=== PATIENT | female | born 1960 | race Caucasian/White ===

== ENCOUNTER 2016-08-16 12:58 | Inpatient (IN) | payer MEDICARE, OTHER ==
[2016-08-16 13:36] LABS: #Basophils 0.1 thou/uL (0.0-0.2); #Lymphocytes 1.5 thou/uL (1.20-3.40); #Monocytes 0.5 thou/uL (0.11-0.59); #Neutrophils 3.2 thou/uL (1.40-6.50); %Basophils 1.5 % (0.0-1.0); %Eosinophils 0.1 % (0.0-10.0); %Monocytes 10.1 % (0.0-10.0); Hematocrit 46.5 % (36.0-47.0); Red Blood Cell (RBC) Count 4.92 mill/uL (4.20-5.40); White Blood Cell (WBC) Count 5.3 thou/uL (4.8-10.8)
[2016-08-16 13:50] LABS: ALT (SGPT) 11 U/L (0-55); AST (SGOT) 23 U/L (5-34); Alkaline Phosphatase 92 U/L (40-150); Anion Gap 15 mmol/L (10-20); BUN (Urea Nitrogen) 23 mg/dL (9.8-20.1); Bilirubin, Total 0.3 mg/dL (0.2-1.2); CK (CPK) 26 U/L (29-168); Calc. Creatinine Clearance 0 mL/min (70-130); Calcium 9.1 mg/dL (7.8-10.44); Carbon Dioxide 22 mmol/L (22-29); Chloride 104 mmol/L (98-107); Estimated GFR-MDRD 81; Globulin 3.7 g/dL (2.4-3.5); Protein, Total 7.9 g/dL (6.0-8.3)
[2016-08-16] MEDS ORDERED: methylPREDNISolone Sod Succ/PF 125 MG/2 ML VIAL ONE (14:23)
[2016-08-16] MEDS ORDERED: Acetaminophen 325 MG TAB ONE (15:37)
[2016-08-16] MEDS ORDERED: Sodium Chloride 0.9% 20 ML ONE (16:59)
[2016-08-16] MEDS ORDERED: Ondansetron ODT 4 MG TAB PO PRN (17:05)
[2016-08-16] MEDS ORDERED: Ondansetron HCl/PF 4 MG/2 ML Vial SLOW IVP PRN (17:05)
[2016-08-16] MEDS ORDERED: Acetaminophen 325 MG TAB PO PRN (17:05)
[2016-08-16] MEDS ORDERED: Cyclobenzaprine 10 MG TAB PO PRN (17:39)
[2016-08-16] MEDS ORDERED: Non-Formulary Item 1 EACH (Cyclobenzaprine Hcl [Cyclobenzaprine Hcl] 5 MG) PO PRN (17:39)
[2016-08-16] MEDS ORDERED: (Acetaminophen With Codeine [Tylenol With Codeine #4] 1 TABLET) PO PRN (17:39)
[2016-08-16 17:41] VITALS: BMI 22.1
[2016-08-16] MEDS ORDERED: FLU VACC QS2016-17 36MOS UP/PF 0.5 ML SYRINGE IM ONE (18:00)
[2016-08-16] MEDS: Ipratropium Bromide 2.5 ml Neb NEB SCH (20:32)
[2016-08-16] MEDS: Mometasone/Formoterol 60 PUFF AER INH SCH (20:35)
[2016-08-16] MEDS: Amitriptyline HCl 10 MG TAB PO SCH (21:04)
--- NOTE | 2016-08-16 21:49 | RAD ---
CHEST TWO VIEWS: Date: 08-16-16 Comparison: Prior studies dating back to July 2011. FINDINGS: The heart is normal in size. The lungs are clear. No infiltrate or effusion was seen. A small nod ular density at the top of the left hilum is probably a vessel on end. It could be a calcified gran uloma. In any case, it has not changed at all over the last five years. IMPRESSION: No acute thoracic finding. POS: HOME
[2016-08-16] MEDS: Acetaminophen/Codeine 30-300mg Tablet PO PRN (22:22)
[2016-08-16] MEDS: methylPREDNISolone Sod Succ/PF 125 MG/2 ML VIAL IVP SCH (22:24)
--- NOTE | 2016-08-17 00:38 | HP ---
DATE OF ADMISSION: 08/16/2016 CHIEF COMPLAINT: Dyspnea. HISTORY OF PRESENT ILLNESS: 56-year-old female who presented to [facility] after a 4-day history of shortness of breath, particularly with activity. Of note, the patient is a long time smoker, approximately 1 pack per day for the last 40 years. Up to this point, she has had no formal diagnosis of COPD; and is on no medications for this suspected diagnosis. In the emergency department, patient's labs were evaluated showing no leukocytosis , no anemia, normal electrolytes, and kidney function, normal glucose, and liver enzymes along with normal cardiac labs. A chest x-ray was taken with a preliminary read of COPD changes with no notable infiltrates. The patient is afebrile, but does present with a mild tachycardia and tachypnea. The patient is not on home oxygen, however, is requiring it in order to sat greater than 90% ; the patient was notably in the 80s while satting on room air in the emergency department. The patient will be admitted for hypoxia and further care related to concerns for potential COPD. PAST MEDICAL HISTORY: Includes lumbar degenerative disk disease, chronic headaches, and osteoporosis. PAST SURGICAL HISTORY: Bilateral breast implants in 2007 and cholecystectomy in 2011. SOCIAL HISTORY: Smoker 1 pack per day x40 years. FAMILY HISTORY: Both parents are and she has one daughter, otherwise noncontributory. ALLERGIES: PENICILLIN and LYRICA. CURRENT MEDICATIONS: Include Mobic 15 mg p.o. daily, amitriptyline 10 mg 2 tabs by mouth once a day at bedtime, Flexeril 10 mg q.8 hours p.r.n., sertraline 50 mg p.o. daily, diazepam 5 mg half tablet by mouth once daily at bedtime, alendronate 70 mg 1 tab p.o. weekly, Tylenol #4 one p.o. q.6 hours p.r.n. REVIEW OF SYSTEMS: Constitutional: Denies fever, chills, fatigue, and weakness. Eyes: Denies blurred vision, loss of vision, or pain. Chest: Denies chest pain or palpitations. Pulmonary: Reports dyspnea. Gastrointestinal: Denies nausea, vomiting, diarrhea, constipation, or abdominal pain. Genitourinary: Denies urgency, frequency, dysuria, or hematuria. Skin: Denies rash, sores, or ulcer. Neuro: Denies having headache. LABORATORY DATA: White blood cell count 5.3, H\T\H is 15.3 and 46.5, platelets 156. Sodium is 137, potassium is 3.7, BUN is 23, creatinine is 0.74. GFR is 81 , glucose 102. Normal cardiac enzymes. Chest x-ray official read is pending. PHYSICAL EXAMINATION: VITAL SIGNS: Temperature is 98.4, pulse is 119, respiratory rate is 24, oxygenating 92% on 2 liters, blood pressure is 128/86. GENERAL: Patient is well appearing, alert, and oriented to person, place, time , and situation in no acute distress. FACE: No asymmetry. EYES: Conjunctivae is clear. Extraocular muscles are intact bilaterally. No discharge. She is wearing glasses. HEAD, EYES, EARS, NOSE, and THROAT: Moist mucous membranes within normal limits. NECK: Thyroid. Supple, full range of motion. No lymphadenopathy, no meningeal signs. CARDIOVASCULAR: Sinus tachycardia. Normal S1, S2. No murmurs, rubs, or gallops. RESPIRATORY: Scattered wheezes diffusely with few scattered crackles. No respiratory distress. GASTROINTESTINAL: Soft, nontender to palpation. No rebound or guarding. No masses. EXTREMITIES: Warm and well well-perfused. No clubbing, cyanosis, or edema. SKIN: No rash. NEUROLOGIC: Nonfocal. Cranial nerves II through XII are intact. BACK: Lower paralumbar and sacral tenderness bilaterally. ASSESSMENT AND PLAN: 1. Hypoxia. We will provide supplemental oxygen to keep sats greater than 92% and plan to wean oxygen as tolerated. We will provide scheduled nebulized treatments. We will continue q.8 hours Solu-Medrol with plan to transition to p.o. steroids thereafter. We will follow up chest x-ray for suspected chronic obstructive pulmonary disease findings and start on controller medication Dulera and Spiriva. 2. Smoker. Patient was counseled on smoking cessation, she plans to stop at this time going forward; she currently declines a Nicotine patch. 3. Lumbar degenerative disk disease. We will continue home medication, pain medication. 4. Chronic headaches. We will continue amitriptyline. 5. Anxiety and depression. We will continue sertraline. 6. Prophylaxis. We will start prophylactic Lovenox and PPI. MTDD
[2016-08-17] MEDS: Ipratropium Bromide 2.5 ml Neb NEB SCH ×4 (01:12→18:40)
[2016-08-17] MEDS: Enoxaparin Sodium 30 MG/0.3 ML SYRINGE SC SCH (06:07)
[2016-08-17] MEDS: methylPREDNISolone Sod Succ/PF 125 MG/2 ML VIAL IVP SCH (06:08)
[2016-08-17] MEDS: Mometasone/Formoterol 60 PUFF AER INH SCH ×2 (06:12→18:38)
[2016-08-17] MEDS: Acetaminophen/Codeine 30-300mg Tablet PO PRN ×2 (06:40→12:56)
[2016-08-17] MEDS: Meloxicam 7.5 MG TAB PO SCH (08:12)
[2016-08-17] MEDS: Diazepam 5 MG TAB PO SCH (08:12)
[2016-08-17] MEDS: Nicotine 21 MG PATCH TD SCH (08:19)
[2016-08-17] MEDS: Pantoprazole 40 MG VIAL IVP SCH (08:32)
[2016-08-17] MEDS ORDERED: Cyclobenzaprine 10 MG TAB PO PRN (09:36)
[2016-08-17] MEDS ORDERED: methylPREDNISolone Sod Succ/PF 125 MG/2 ML VIAL IVP SCH (12:10)
[2016-08-17] MEDS: Amitriptyline HCl 10 MG TAB PO SCH (20:58)
[2016-08-18] MEDS: Ipratropium Bromide 2.5 ml Neb NEB SCH ×3 (00:40→12:53)
[2016-08-18] MEDS: Acetaminophen/Codeine 30-300mg Tablet PO PRN ×2 (00:43→10:23)
[2016-08-18] MEDS: Enoxaparin Sodium 30 MG/0.3 ML SYRINGE SC SCH (05:47)
[2016-08-18 06:17] VITALS: BP 140/68
[2016-08-18] MEDS: Mometasone/Formoterol 60 PUFF AER INH SCH (07:59)
[2016-08-18] MEDS: Diazepam 5 MG TAB PO SCH (08:50)
[2016-08-18] MEDS: Pantoprazole 40 MG VIAL IVP SCH (08:52)
[2016-08-18] MEDS: Meloxicam 7.5 MG TAB PO SCH (08:52)
[2016-08-18] MEDS: Nicotine 21 MG PATCH TD SCH (08:52)
[2016-08-18 12:06] VITALS: TEMP 97.8
--- NOTE | 2016-08-19 06:02 | DIS ---
DATE OF ADMISSION: 08/17/2016 DATE OF DISCHARGE: 08/18/2016 ADMISSION DIAGNOSES: Hypoxia, smoker, lumbar degenerative disk disease, chronic headaches, anxiety, and depression. DISCHARGE DIAGNOSES: Hypoxia, smoker, lumbar degenerative disk disease, chronic headaches, anxiety, and depression, chronic obstructive pulmonary disease. PROCEDURES: Chest x-ray showed no acute intrathoracic findings with some hyperexpansion of the lung luna. HOSPITAL COURSE: This is a 56-year-old female, who was admitted for hypoxia after presenting to the emergency department with a 4-day history of progressive dyspnea. She was notably hypoxic on room air, requiring supplemental oxygen. The patient does have an extended history of tobacco abuse. Her lab work and chest x-ray was largely unrevealing from an infectious process. Upon admission, she was provided supplemental oxygen to keep saturations greater than 92%, received scheduled nebulized treatments, IV Solu- Medrol, and was started on COPD maintenance medications including Spiriva and Dulera. Over the course of her short stay, the patient's, respiratory status did improve to where she was able to maintain an oxygen levels into the low 90s on room air after successfully weaning off of supplemental oxygen. She remained afebrile and hemodynamically stable throughout her stay and at this time she is appropriate for discharge home. She was thoroughly counseled on smoking cessation and provided with nicotine patches here and upon discharge. DISPOSITION: The patient will return to her home and follow up with myself in clinic next week. DISCHARGE MEDICATIONS: Include her usual home medications which are Mobic 15 mg p.o. daily, amitriptyline 10 mg two tablets p.o. at bedtime, Flexeril 10 mg every 8 hours p.r.n., sertraline 50 mg p.o. daily, diazepam 5 mg half tablet by mouth once daily at bedtime, alendronate 70 mg p.o. weekly, Tylenol #4 every 6 hours p.r.n. NEW MEDICATIONS: Include prednisone 40 mg p.o. daily x5 days, Spiriva 2 puffs daily, and Breo Ellipta one inhalation daily. MTDD
[2016-08-23] MEDS ORDERED: Alendronate Sodium 70 mg Tablet PO SCH (06:00)
== END 2016-08-18 14:10 | disposition home or self-care (01) | DRG 192 ==
LOC: BURERS 12:58 → INTOOBSV 16:34 → BURMED 16:34 → OBSVTOIN 08-17 12:20
PROVIDERS: ADMIT Family Medicine; ATTEND Family Medicine
DX: J44.1 Chronic obstructive pulmonary disease with (acute) exacerbation (principal); F32.9 Major depressive disorder, single episode, unspecified; R09.02 Hypoxemia; J45.909 Unspecified asthma, uncomplicated; F17.210 Nicotine dependence, cigarettes, uncomplicated; M51.36 Other intervertebral disc degeneration, lumbar region; R51 Headache; F41.9 Anxiety disorder, unspecified; M81.0 Age-related osteoporosis without current pathological fracture
CPT/HCPCS: 36415; 71020; 80053; 82553; 83880; 84484; 85025; 93005; 94640; 94664; 94760; 96374; A4216; C9113; J1650; J2930; J7620; J7644

== ENCOUNTER 2016-11-22 13:49 | Emergency (ER) | payer MEDICARE, OTHER ==
[2016-11-22] MEDS ORDERED: predniSONE 20 MG TAB ONE (14:18)
[2016-11-22 14:23] LABS: #Basophils 0.1 thou/uL (0.0-0.2); #Eosinphils 0.2 thou/uL (0.0-0.7); #Lymphocytes 2.6 thou/uL (1.20-3.40); #Monocytes 0.4 thou/uL (0.11-0.59); #Neutrophils 2.2 thou/uL (1.40-6.50); %Basophils 2.1 % (0.0-1.0); %Eosinophils 3.4 % (0.0-10.0); %Lymphocytes 47.7 % (21.0-51.0); %Monocytes 6.7 % (0.0-10.0); %Neutrophils 40.1 % (42.0-75.0); Mean Corpuscular HGB CONC 34.1 g/dL (32.0-36.0); Mean Corpuscular Hemoglobin 32.2 pg (27.0-31.0); Mean Corpuscular Volume 94.3 fl (81.0-99.0); Mean Platelet Volume 7.4 fL (7.4-10.4); Platelet Count 241 thou/uL (130-400); Red Blood Cell (RBC) Count 4.65 mill/uL (4.20-5.40); White Blood Cell (WBC) Count 5.5 thou/uL (4.8-10.8)
[2016-11-22 14:54] LABS: ALT (SGPT) 11 U/L (8-55); AST (SGOT) 17 U/L (5-34); Albumin 4.1 g/dL (3.5-5.0); Alkaline Phosphatase 83 U/L (40-150); Anion Gap 10 mmol/L (10-20); BUN (Urea Nitrogen) 18 mg/dL (9.8-20.1); Bilirubin, Total 0.4 mg/dL (0.2-1.2); Calc. Creatinine Clearance 0 mL/min (70-130); Calcium 9.1 mg/dL (7.8-10.44); Carbon Dioxide 26 mmol/L (22-29); Chloride 106 mmol/L (98-107); Estimated GFR-MDRD 85; Globulin 3.4 g/dL (2.4-3.5); Glucose 88 mg/dL (70-105); Potassium 4.3 mmol/L (3.5-5.1); Protein, Total 7.5 g/dL (6.0-8.3); Sodium 138 mmol/L (136-145)
[2016-11-22 14:56] LABS: Troponin I Less than 0.010 ng/mL (< 0.028)
[2016-11-22] MEDS ORDERED: Azithromycin 250 MG TAB ONE (15:52)
--- NOTE | 2016-11-22 20:53 | RAD ---
PORTABLE CHEST: Date: 11-22-16 An AP portable film at 1414 is compared with a 08-16-16 study. FINDINGS: The heart remains normal in size. The lungs are clear with no infiltrate or effusion visible. There is no congestion or obvious mediastinal abnormality. The lungs are hyperexpanded as usual. IMPRESSION: No acute thoracic finding. POS: HOME
== END 2016-11-22 16:16 | disposition home or self-care (01) ==
LOC: BURERS 13:49
DX: J44.1 Chronic obstructive pulmonary disease with (acute) exacerbation (principal); F41.9 Anxiety disorder, unspecified; F32.9 Major depressive disorder, single episode, unspecified; F17.210 Nicotine dependence, cigarettes, uncomplicated; Z79.899 Other long term (current) drug therapy
CPT/HCPCS: 71010; 80053; 82553; 83880; 84484; 85025; 93005; 94640; 94760; J7506; J7620

== ENCOUNTER 2017-03-23 10:51 | Outpatient (CLI) | payer MEDICARE, MEDICAID ==
--- NOTE | 2017-03-23 18:40 | RAD ---
RIGHT HIP No fracture or arthritic change was seen. The joint space appears normal. IMPRESSION: No acute findings POS: HOME
--- NOTE | 2017-03-23 18:41 | RAD ---
LEFT HIP TWO VIEWS: 03/23/17 No fracture, joint space narrowing or arthritic change was seen. The articular surfaces are smooth. IMPRESSION: No significant findings. POS: HOME
== END 2017-03-23 10:52 | disposition home or self-care (01) ==
LOC: BURRAD 10:51
PROVIDERS: ATTEND Family Medicine
DX: M25.552 Pain in left hip (principal)

== ENCOUNTER 2017-06-09 16:30 | Emergency (ER) | payer MEDICARE, MEDICAID ==
[2017-06-09] MEDS ORDERED: Azithromycin 250 MG TAB ONE (17:24)
[2017-06-09] MEDS ORDERED: predniSONE 20 MG TAB ONE (17:24)
[2017-06-09] MEDS ORDERED: Ibuprofen 800 MG TAB ONE ×2 (17:36→17:37)
== END 2017-06-09 18:14 | disposition home or self-care (01) ==
LOC: BURERS 16:30
DX: J20.9 Acute bronchitis, unspecified (principal); J44.0 Chronic obstructive pulmonary disease with (acute) lower respiratory infection; F41.9 Anxiety disorder, unspecified; F32.9 Major depressive disorder, single episode, unspecified; F17.210 Nicotine dependence, cigarettes, uncomplicated
CPT/HCPCS: 94640; 94760; J7506; J7620

== ENCOUNTER 2018-04-13 12:49 | Emergency (ER) | payer MEDICARE, OTHER ==
[2018-04-13] MEDS ORDERED: methylPREDNISolone Sod Succ/PF 125 MG/2 ML VIAL ONE (13:14)
[2018-04-13] MEDS ORDERED: Ketorolac Tromethamine 30 MG/ML VIAL ONE (13:14)
[2018-04-13 13:31] LABS: #Basophils 0.1 thou/uL (0.0-0.2); #Eosinphils 0.2 thou/uL (0.0-0.7); #Lymphocytes 2.5 thou/uL (1.20-3.40); #Monocytes 0.6 thou/uL (0.11-0.59); #Neutrophils 4.5 thou/uL (1.40-6.50); %Basophils 0.9 % (0.0-1.0); %Eosinophils 2.2 % (0.0-10.0); %Lymphocytes 31.6 % (21.0-51.0); %Monocytes 7.8 % (0.0-10.0); %Neutrophils 57.6 % (42.0-75.0); Hemoglobin 14.4 g/dL (12.0-16.0); Mean Corpuscular HGB CONC 34.7 g/dL (32.0-36.0); Mean Corpuscular Hemoglobin 31.4 pg (27.0-31.0); Mean Corpuscular Volume 90.4 fL (78.0-98.0); Mean Platelet Volume 7.3 fL (7.4-10.4); Platelet Count 293 thou/uL (130-400); RBC Distribution Width 11.2 % (11.5-14.5); Red Blood Cell (RBC) Count 4.59 mill/uL (4.20-5.40); White Blood Cell (WBC) Count 7.8 thou/uL (4.8-10.8)
[2018-04-13 13:40] LABS: CO2 Tension (PvCO2) 47.4 mmHg (41.0-51.0); O2 Tension (PvO2) 51.6 mmHg (35.0-45.0)
[2018-04-13 13:41] LABS: Calcium, Ionized 1.14 mmol/L (1.12-1.32); Hemoglobin - Calc 16.4 g/dL (12.0-18.0); Potassium 3.6 mmol/L (3.4-4.7); T. Carbon Dioxide 29.5 mmol/L (1.0-85.0)
[2018-04-13 13:45] LABS: ALT (SGPT) 18 U/L (8-55); AST (SGOT) 24 U/L (5-34); Albumin 4.2 g/dL (3.5-5.0); Alkaline Phosphatase 91 U/L (40-150); Anion Gap 15 mmol/L (10-20); BUN (Urea Nitrogen) 17 mg/dL (9.8-20.1); Bilirubin, Total 0.5 mg/dL (0.2-1.2); Calc. Creatinine Clearance 0 mL/min (70-130); Calcium 9.9 mg/dL (7.8-10.44); Carbon Dioxide 26 mmol/L (22-29); Chloride 102 mmol/L (98-107); Estimated GFR-MDRD 88; Globulin 3.9 g/dL (2.4-3.5); Glucose 102 mg/dL (70-105); Potassium 3.8 mmol/L (3.5-5.1); Protein, Total 8.1 g/dL (6.0-8.3); Sodium 139 mmol/L (136-145)
[2018-04-13 13:46] LABS: CKMB 0.8 ng/mL (0-6.6); Troponin I Less than 0.010 ng/mL (< 0.028)
--- NOTE | 2018-04-13 18:38 | RAD ---
PORTABLE CHEST: 04/13/18 The lungs seem hyperexpanded but they are clear. No focal infiltrate or effusion was seen. The heart size is normal. The mediastinum is unremarkable. IMPRESSION: Hyperinflated lungs but no focal pulmonary findings. POS: HOME
== END 2018-04-13 15:00 | disposition home or self-care (01) ==
LOC: BURERS 12:49
DX: J44.1 Chronic obstructive pulmonary disease with (acute) exacerbation (principal); F32.9 Major depressive disorder, single episode, unspecified; F41.9 Anxiety disorder, unspecified; F17.210 Nicotine dependence, cigarettes, uncomplicated; Z79.899 Other long term (current) drug therapy
CPT/HCPCS: 71045; 80053; 82330; 82553; 82803; 84484; 85025; 87804; 96361; 96374; 96375; J1885; J2930; J7620

== ENCOUNTER 2019-01-28 14:08 | Emergency (ER) | payer MEDICARE, MEDICAID ==
[2019-01-28] MEDS ORDERED: Famotidine 20 MG TAB ONE (14:26)
[2019-01-28 14:27] LABS: Bilirubin Negative (Negative); Blood, Urine Trace (Negative); Clarity Slightly Cloudy (Clear); Glucose, Urine (Dipstick) Negative (Negative); Leukocyte Trace (Negative); Nitrite Negative (Negative); Protein, Urine (Dipstick) 30 mg/dL (Neg-Trace)
[2019-01-28] MEDS ORDERED: Mag-Al Plus 1200 MG/1200 MG/120 MG/30 ML UDCUP ONE (14:27)
[2019-01-28] MEDS ORDERED: Lidocaine Viscous Sol 2% 15 ml UD Cup ONE (14:27)
[2019-01-28 14:28] LABS: Bacteria/HPF None Seen HPF (None Seen); Broad Cast None Seen LPF (None Seen); Calcium Oxalate Crystals None Seen HPF (None Seen); Cellular Cast None Seen LPF (None Seen); Epithelial Cast None Seen LPF (None Seen); Fatty Cast None Seen LPF (None Seen); Mucous/LPF 1+ LPF (<2+); Other Casts None Seen LPF (None Seen); Oval Fat Bodies/HPF None Seen HPF (None Seen); Red Blood Cell Cast None Seen LPF (None Seen); Renal Epithelial None Seen HPF (None Seen); Sperm/HPF None Seen HPF (None Seen); Squamous Epithelial None Seen HPF (0-3); Transitional Epithelial None Seen HPF (None Seen); Trichomonas/HPF None Seen HPF (None Seen); Triple Phosphate Crystal None Seen HPF (None Seen); Unclassified Crystals None Seen HPF (None Seen); WBC/HPF None Seen HPF (0-3); Waxy Cast None Seen LPF (None Seen); White Blood Cell Cast None Seen LPF (None Seen); Yeast-Budding None Seen HPF (None Seen); Yeast-Hyphae None Seen HPF (None Seen)
== END 2019-01-28 14:54 | disposition home or self-care (01) ==
LOC: BURERS 14:08
DX: K29.70 Gastritis, unspecified, without bleeding (principal); J44.9 Chronic obstructive pulmonary disease, unspecified; F41.9 Anxiety disorder, unspecified; F32.9 Major depressive disorder, single episode, unspecified; F17.210 Nicotine dependence, cigarettes, uncomplicated; Z79.899 Other long term (current) drug therapy
CPT/HCPCS: 81003; 81015; 99284

== ENCOUNTER 2020-01-30 16:39 | Emergency (ER) | payer MEDICARE, MEDICAID ==
[2020-01-30] MEDS ORDERED: Lidocaine 1% w/Epinephrine 1:100K 20 ML VIAL ONE (16:55)
[2020-01-30] MEDS ORDERED: Lidocaine 1% PF 5 ML VIAL ONE (16:57)
[2020-01-30] MEDS ORDERED: Clindamycin 150 MG CAP ONE (17:19)
[2020-01-30] MEDS ORDERED: Adacel (T-DAP) 0.5 ML SYRINGE ONE (17:23)
== END 2020-01-30 17:22 | disposition home or self-care (01) ==
LOC: BURERS 16:39
DX: N76.4 Abscess of vulva (principal); J44.9 Chronic obstructive pulmonary disease, unspecified; F41.9 Anxiety disorder, unspecified; F32.9 Major depressive disorder, single episode, unspecified; F17.210 Nicotine dependence, cigarettes, uncomplicated; Z23 Encounter for immunization
CPT/HCPCS: 57010; 90471; 90715

== ENCOUNTER 2020-02-05 13:54 | Emergency (ER) | payer MEDICARE, MEDICAID ==
[2020-02-05] MEDS ORDERED: predniSONE 20 MG TAB ONE (14:56)
== END 2020-02-05 15:00 | disposition home or self-care (01) ==
LOC: BURERS 13:54
DX: T78.40XA Allergy, unspecified, initial encounter (principal); J44.9 Chronic obstructive pulmonary disease, unspecified; F41.9 Anxiety disorder, unspecified; F32.9 Major depressive disorder, single episode, unspecified; F17.210 Nicotine dependence, cigarettes, uncomplicated
CPT/HCPCS: 99283; J7512

== ENCOUNTER 2020-02-08 10:12 | Emergency (ER) | payer MEDICARE, MEDICAID | END 2020-02-08 10:42 | disposition home or self-care (01) | LOC: BURERS 10:12 | DX: K12.0 Recurrent oral aphthae (principal); J45.909 Unspecified asthma, uncomplicated; F41.9 Anxiety disorder, unspecified; F32.9 Major depressive disorder, single episode, unspecified; F17.210 Nicotine dependence, cigarettes, uncomplicated; Z79.899 Other long term (current) drug therapy | CPT/HCPCS: 99281 ==

== ENCOUNTER 2020-04-14 08:28 | Emergency (ER) | payer MEDICARE, MEDICAID ==
[2020-04-14] MEDS ORDERED: Ondansetron PF 4 MG/2 ML Vial ONE (08:57)
[2020-04-14] MEDS ORDERED: Fentanyl 100 MCG/2 ML VIAL ONE (08:57)
[2020-04-14 09:19] LABS: INR-International Normal Ratio 1.5; Prothrombin Time 18.3 sec (12.0-14.7)
[2020-04-14 09:24] LABS: ALT (SGPT) 15 U/L (8-55); AST (SGOT) 20 U/L (5-34); Albumin 4.1 g/dL (3.5-5.0); Alkaline Phosphatase 82 U/L (40-110); Anion Gap 14 mmol/L (10-20); BUN (Urea Nitrogen) 14 mg/dL (9.8-20.1); Bilirubin, Total 0.3 mg/dL (0.2-1.2); Calc. Creatinine Clearance 0 mL/min (70-130); Calcium 8.9 mg/dL (7.8-10.44); Carbon Dioxide 24 mmol/L (22-29); Chloride 105 mmol/L (98-107); Estimated GFR-MDRD 90; Globulin 3.7 g/dL (2.4-3.5); Glucose 92 mg/dL (70-105); Potassium 4.5 mmol/L (3.5-5.1); Protein, Total 7.8 g/dL (6.0-8.3); Sodium 138 mmol/L (136-145)
[2020-04-14 09:33] LABS: #Basophils 0.1 thou/uL (0.0-0.2); #Eosinphils 0.1 thou/uL (0.0-0.7); #Lymphocytes 1.9 thou/uL (1.20-3.40); #Monocytes 0.6 thou/uL (0.11-0.59); #Neutrophils 4.2 thou/uL (1.40-6.50); %Basophils 0.8 % (0.0-1.0); %Eosinophils 2.2 % (0.0-10.0); %Monocytes 8.4 % (0.0-10.0); %Neutrophils 60.6 % (42.0-75.0); Mean Corpuscular HGB CONC 31.9 g/dL (32.0-36.0); Mean Corpuscular Hemoglobin 30.5 pg (27.0-31.0); Mean Corpuscular Volume 95.7 fL (78.0-98.0); Mean Platelet Volume 7.6 fL (7.4-10.4); Platelet Count 221 thou/uL (130-400); RBC Distribution Width 12.4 % (11.5-14.5); Red Blood Cell (RBC) Count 4.92 mill/uL (4.20-5.40); White Blood Cell (WBC) Count 6.8 thou/uL (4.8-10.8)
[2020-04-14] MEDS ORDERED: Morphine 4 MG/ML VIAL ONE (10:52)
[2020-04-14 11:23] LABS: Bilirubin Negative (Negative); Blood, Urine Trace (Negative); Clarity Slightly Cloudy (Clear); Glucose, Urine (Dipstick) Negative (Negative); Ketone, Urine Negative (Negative); Leukocyte Negative (Negative); Nitrite Negative (Negative); Protein, Urine (Dipstick) Negative (Neg-Trace); Specific Gravity, Urine 1.015 (1.005-1.030); Urobilinogen 0.2 mg/dL (Less than 2)
[2020-04-14] MEDS ORDERED: Dexamethasone 4 MG TAB ONE (11:23)
[2020-04-14 11:30] LABS: WBC/HPF 0-3 HPF (0-3)
[2020-04-14 11:31] LABS: Bacteria/HPF 3+ HPF (None Seen); Yeast-Budding 1+ HPF (None Seen)
--- NOTE | 2020-04-14 13:30 | CT ---
CT AORTIC DISSECTION: Date: 04/14/[address] of the thorax was performed for evaluation of chest and back pain. The aorta shows no sign of aneurysm or dissection. The celiac artery, SMA, PADMA, and renal arteries al l fill normally. There is considerable arteriosclerotic change in the lower abdominal aorta and proxi mal iliac arteries. No acute pulmonary infiltrate or effusion seen. There is no sign of mediastinal m ass or significant adenopathy. Some calcification is seen in the left coronary system in particular. The visible portions of the abdomen showed no acute findings. The distal body and tail of the patient 's pancreas seemed a little more prominent in width than the remainder of the pancreas, but I do not see an actual focal mass to common upon. An incidental finding are some severe degenerative changes a t the L2-L3 level with some central canal stenosis and concentric disc bulging. IMPRESSION: 1. No evidence of aortic aneurysm or dissection. 2. The pulmonary arteries were seen well and show no sign of embolism. 3. Severe degenerative changes with some central canal stenosis at L2-L3. Preliminary report called to Dr. Munoz at 1035 hours on 04/14/2020. CODE CR. POS: HOME
[2020-04-14] MEDS ORDERED: Iopamidol 370 76% 100 ML VIAL ONE (16:59)
== END 2020-04-14 12:21 | disposition home or self-care (01) ==
LOC: BURERS 08:28
DX: M48.061 Spinal stenosis, lumbar region without neurogenic claudication (principal); B37.3 Candidiasis of vulva and vagina; I10 Essential (primary) hypertension; J44.9 Chronic obstructive pulmonary disease, unspecified; F41.9 Anxiety disorder, unspecified; F32.9 Major depressive disorder, single episode, unspecified; F17.210 Nicotine dependence, cigarettes, uncomplicated
CPT/HCPCS: 36415; 71275; 74174; 80053; 81003; 81015; 83690; 85025; 85610; 85730; 96374; 96375; J2270; J2405; J3010; J8540; Q9967

== ENCOUNTER 2021-01-02 09:07 | Outpatient (CLI) | payer MEDICARE, MEDICAID | END 2021-01-02 09:08 | disposition home or self-care (01) | LOC: BURRAD 09:07 | PROVIDERS: ATTEND Neurological Surgery | DX: M54.2 Cervicalgia (principal); Z98.890 Other specified postprocedural states | CPT/HCPCS: 72040 ==

== ENCOUNTER 2024-01-16 09:38 | Emergency (ER) | payer MEDICARE, MEDICAID ==
[2024-01-16] MEDS ORDERED: predniSONE 20 MG TAB ONE (10:32)
== END 2024-01-16 10:36 | disposition home or self-care (01) ==
LOC: BURERS 09:38
DX: J44.1 Chronic obstructive pulmonary disease with (acute) exacerbation (principal)
CPT/HCPCS: 99284; J7512